=== PATIENT | male | born 1965 | race African-American/Black ===

== ENCOUNTER 2018-06-08 06:47 | Day surgery (SDC) | payer OTHER ==
[~2018-06-08] VITALS: Ht 170.2 cm; Wt 88.9 kg
[2018-06-08 07:11] VITALS: BP 154/91
[2018-06-08 09:58] VITALS: BP 135/82
== END 2018-06-08 09:40 | disposition home or self-care (01) ==
LOC: DS 06:47 → OR 08:00 → GI 08:00 → DS 09:40
PROVIDERS: Internal Medicine Gastroenterology
PROC: 0DJD8ZZ Inspection of Lower Intestinal Tract, Via Natural or Artificial Opening Endoscopic (ICD-10-PCS; principal; 2018-06-08 08:00)
DX: Z12.11 Encounter for screening for malignant neoplasm of colon (principal); K64.8 Other hemorrhoids; Q43.8 Other specified congenital malformations of intestine
CPT/HCPCS: 45378; J1200; J1610; J2250; J2310; J3010; J3490